=== PATIENT | female | born 1970 | race Caucasian/White ===

== ENCOUNTER 2016-10-24 20:56 | Emergency (ER) | payer MEDICAID ==
[~2016-10-24] VITALS: Wt 80.0 kg
--- NOTE | 2016-10-24 21:42 | ERD ---
ER Documentation Chief Complaint Date/Time DATE: 10/24/16 TIME: 21:39 Chief Complaint RIGHT SIDE LOWER DENTAL PAIN FOR A FEW DAYS. HPI This a 46-year-old female who presents to the emergency department today complaining of right-sided lower dental pain for the past couple of days. Patient states she has a broken tooth. States she has not taken any medication for the pain. States that she is visiting here from [place]. Denies any fevers or chills. ROS All systems reviewed and are negative except as per history of present illness. Medications Home Meds Active Scripts Clindamycin Hcl* (Clindamycin Hcl*) 300 Mg Capsule, 300 MG PO TID for 10 Days, CAP Prov:DEMIAN PRASAD PA-C 10/24/16 Hydrocodone/Acetaminophen ([place] 5-325 Tablet) 1 Each Tablet, 1 TAB PO Q6H Y for PAIN, #10 TAB Prov:DEMIAN PRASAD PA-C 10/24/16 Ibuprofen* (Motrin*) 600 Mg Tab, 600 MG PO Q6, #30 TAB Prov:DEMIAN PRASAD PA-C 10/24/16 Physical Exam Vitals Vital Signs Date Time Temp Pulse Resp B/P Pulse Ox O2 Delivery O2 Flow Rate FiO2 10/24/16 20:58 99.0 100 20 133/83 98 Physical Exam Const: Anxious, no acute distress Head: Atraumatic Eyes: Normal Conjunctiva ENT: Normal External Ears, Nose and Mouth. Right-sided lower tooth with evidence of fracture. No evidence of abscess. Neck: Full range of motion..~ No meningismus. Resp: Clear to auscultation bilaterally Cardio: Regular rate and rhythm, no murmurs Abd: Soft, non tender, non distended. Normal bowel sounds Skin: No petechiae or rashes Neur: Awake and alert Psych: Normal Mood and Affect Results 24 hrs Current Medications Medications (Trade) Dose Ordered Sig/Pablo Route PRN Reason Start Time Stop Time Status Last Admin Dose Admin Acetaminophen/ Hydrocodone Bitart ([place] (5/325)) 1 tab ONCE ONCE PO 10/24/16 22:00 10/24/16 22:01 10/24/16 21:43 Procedures/MDM This 46-year-old female who presents to the emergency department today complaining of some right-sided dental pain for the past 2 days. Patient has a fractured tooth on her bottom right lower tooth. Patient is allergic to penicillin and therefore I will give her a prescription for clindamycin. Also give her a prescription for a short course of [place] as well as Motrin. Patient is afebrile and otherwise well appearing of low suspicion for sepsis or deep space tract infection or abscess. Patient was given a [place] here in the emergency department At this time the patient is stable for discharge and outpatient management. Patient should follow up with their PCP in the next 1-2 days. Patient was instructed to see a dentist. She was given a list of resources per they may return to the emergency department sooner for any persistent or worsening of symptoms. Patient understood and agreed with the plan. Departure Diagnosis: Primary Impression: Pain, dental Condition: Fair DEMIAN PRASAD PA-C Oct 24, 2016 21:42
[2016-10-24] MEDS ORDERED: IBUP-1542 PO (21:43)
[2016-10-24] MEDS ORDERED: CLIN-73 PO (21:44)
[2016-10-24] MEDS ORDERED: HYDR-906 PO (21:44)
[2016-10-24] MEDS ORDERED: HYDROCODONE/APAP (5/325) TAB PO ONE (22:00)
== END 2016-10-24 21:53 | disposition home or self-care (01) ==
LOC: FTE 20:56
DX: K08.89 Other specified disorders of teeth and supporting structures (principal)
CPT/HCPCS: Z7502; Z7610; 99284

== ENCOUNTER 2017-05-03 00:41 | Emergency (ER) | payer MEDICAID, OTHER ==
[~2017-05-03] VITALS: Ht 177.8 cm; Wt 86.5 kg
[~2017-05-03 00:41] MED LIST: CLIN-73 PO; HYDR-906 PO; IBUP-1542 PO
[2017-05-03 00:57] VITALS: Ht 177.8 cm; Wt 86.5 kg
--- NOTE | 2017-05-03 02:21 | ERD ---
ER Documentation Chief Complaint Date/Time DATE: 05/03/17 TIME: 02:20 Chief Complaint Rash that started last night from the neck to the chest HPI Patient is a 46-year-old female who presents with a rash that started on her neck and is now spreading down her chest wall that she has had for 2 days. It is itchy and warm as she states she has had staph infection in the past that she believes this is staph again. No fever. No swelling of her lips or tongue or difficulty breathing. She has not taken any medications. ROS All systems reviewed and are negative except as per history of present illness. Medications Home Meds Active Scripts Clindamycin Hcl* (Clindamycin Hcl*) 300 Mg Capsule, 300 MG PO TID for 10 Days, CAP Prov:DEMIAN PRASAD PA-C 10/24/16 Hydrocodone/Acetaminophen ([place] 5-325 Tablet) 1 Each Tablet, 1 TAB PO Q6H Y for PAIN, #10 TAB Prov:DEMIAN PRASAD PA-C 10/24/16 Ibuprofen* (Motrin*) 600 Mg Tab, 600 MG PO Q6, #30 TAB Prov:DEMIAN PRASAD PA-C 10/24/16 Allergies Allergies: Coded Allergies: erythromycin base (Verified Allergy, Intermediate, Hives, 05/03/17) Penicillins (Verified Allergy, Unknown, 05/03/17) Uncoded Allergies: SULFA (Allergy, Intermediate, Hives, 05/03/17) PMhx/Soc History of Surgery: No Anesthesia Reaction: No Hx Neurological Disorder: No Hx Respiratory Disorders: No Hx Cardiac Disorders: No Hx Psychiatric Problems: No Hx Miscellaneous Medical Probl: No Hx Alcohol Use: No Hx Substance Use: No Hx Tobacco Use: Yes FmHx Family History: No diabetes Physical Exam Vitals Vital Signs Date Time Temp Pulse Resp B/P Pulse Ox O2 Delivery O2 Flow Rate FiO2 05/03/17 00:57 98.7 91 20 109/69 98 Physical Exam Const: [] Head: Atraumatic Eyes: Normal Conjunctiva ENT: Normal External Ears, Nose and Mouth. Neck: Full range of motion..~ No meningismus. Resp: Clear to auscultation bilaterally Cardio: Regular rate and rhythm, no murmurs Abd: Soft, non tender, non distended. Normal bowel sounds Skin: Macular papular erythematous rash on the anterior neck and chest wall, mildly warm to palpation Procedures/MDM 46-year-old female presents with a rash that looks more like dermatitis to me but she is convinced it is cellulitis and was antibiotics. I gave her prescription for a short course of prednisone as well as Keflex in case this is early cellulitis. Patient counseled regarding my diagnostic impression and care plan. Prior to discharge all questions answered. Pt agrees with treatment plan and understands strict return precautions. Pt is instructed to follow up with primary care provider within 24-48 hours. Precautionary instructions provided including instructions to return to the ER if not improving or for any worsening or changing symptoms or concerns. Departure Diagnosis: Primary Impression: Rash Condition: Stable Patient Instructions: Self-Care for Skin Rashes Additional Instructions: Call your primary care doctor TOMORROW for an appointment during the next 1-2 days.See the doctor sooner or return here if your condition worsens before your appointment time. MARCIA STEARNS PA-C May 03, 2017 02:21
== END 2017-05-03 02:40 | disposition home or self-care (01) ==
LOC: FTE 00:41
DX: R21 Rash and other nonspecific skin eruption (principal)
CPT/HCPCS: 99282